=== PATIENT | male | born 2000 | race Two or more races ===

== ENCOUNTER 2022-11-18 05:20 | Emergency (ER) | payer OTHER ==
[~2022-11-18] VITALS: Ht 180.3 cm; Wt 168.0 kg
[2022-11-18] MEDS ORDERED: AUG875T PO (07:40)
[2022-11-18] MEDS ORDERED: NAP500T PO (07:40)
[2022-11-18 08:09] VITALS: BP 133/81; PULSE 84; RESP 19; TEMP 98.7; O2SAT 98
== END 2022-11-18 08:11 | disposition home or self-care (01) ==
LOC: ER 05:20
DX: K02.61 Dental caries on smooth surface limited to enamel (principal); R22.0 Localized swelling, mass and lump, head; I10 Essential (primary) hypertension